=== PATIENT | female | born 1945 | race Caucasian/White ===

== ENCOUNTER 2022-06-10 17:22 | Emergency (ER) | payer MEDICARE ==
[~2022-06-10] VITALS: Ht 157.5 cm; Wt 49.9 kg
[2022-06-10 17:27] VITALS: BP 128/59
[2022-06-10] MEDS ORDERED: TRAMADOL HCL 50 MG TABLET PO STA (18:43)
[2022-06-10] MEDS ORDERED: TRAM50TA4 PO (21:28)
== END 2022-06-10 22:02 | disposition home or self-care (01) ==
LOC: EDH 17:22
DX: M54.50 Low back pain, unspecified (principal)
CPT/HCPCS: 72100; 72131; 73522